=== PATIENT | male | born 1970 | race Caucasian/White ===

== ENCOUNTER 2019-02-21 11:54 | Emergency (ER) | payer OTHER ==
[2019-02-21 12:13] LABS: BASOPHILS % (AUTO) 1 % (0-3); EOSINOPHILS % (AUTO) 1 % (0-9); HEMATOCRIT 43 % (39-53); HEMOGLOBIN 14.4 gm/dl (13.5-17.7); LYMPHOCYTES % (AUTO) 28.3 % (10-50); MEAN CORPUSCULAR HEMOGLOBIN 29.1 pg (27.0-32.0); MEAN CORPUSCULAR HGB CONC 33.7 gm/dl (32.0-36.0); MEAN CORPUSCULAR VOLUME 86 fL (80-100); NEUTROPHILS % (AUTO) 61.4 % (37-80)
[2019-02-21 12:19] LABS: CALCIUM 8.7 mg/dl (8.5-10.1); CARBON DIOXIDE 28.2 mEq/L (21-32); CREATININE 1.08 mg/dl (0.80-1.30); POTASSIUM 4.2 mMol/L (3.5-5.1)
[2019-02-21 13:25] VITALS: BP 157/95; PULSE 56; RESP 20; TEMP 97.9; O2SAT 98
== END 2019-02-21 13:24 | disposition home or self-care (01) | DRG 556 ==
LOC: ED 11:54
DX: M25.562 Pain in left knee (principal); V43.53XA Car driver injured in collision with pick-up truck in traffic accident, initial encounter; R40.2362 Coma scale, best motor response, obeys commands, at arrival to emergency department; R40.2142 Coma scale, eyes open, spontaneous, at arrival to emergency department; R40.2252 Coma scale, best verbal response, oriented, at arrival to emergency department; Z51.89 Encounter for other specified aftercare
CPT/HCPCS: 36415; 70450; 71045; 72125; 73560; 80048; 85025; 85610; 99284; G0390